=== PATIENT | male | born 1975 | race Asian ===

== ENCOUNTER 2021-01-10 17:35 | Inpatient (IN) | payer OTHER, SELFPAY ==
[2021-01-10] VITALS (25 sets, daily range): BP systolic 97–131; BP diastolic 57–89; PULSE 86–110; RESP 15–27; TEMP 36.5–37.8; O2SAT 95–99; BMI 29.3
--- NOTE | 2021-01-10 17:45 | DI.CT_ITS ---
Exam(s) CT ABDOMEN PELVIS W EXAM: CT ABDOMEN PELVIS W CLINICAL HISTORY: RLQ pain. TECHNIQUE: Imaging Protocol: Axial computed tomography images with coronal and sagittal reformatted images were created and reviewed CONTRAST MATERIAL: Intravenous: Omnipaque 100cc Oral: None COMPARISON: No exams were available for comparison FINDINGS: VISUALIZED LUNG BASES: No nodules nor pleural effusions evident. ABDOMEN: There is no ascites. LIVER: There is a small 8 millimeter cyst in the medial upper right hepatic lobe. There is also a joy bcapsular 6 millimeter hypodensity lower down in the lateral aspect right hepatic lobe, probably a he mangioma and there is another similar size and similar appearing subcapsular finding in the medial joy bcapsular aspect of the lower most right hepatic lobe. There is no dilatation of intrahepatic ducts. GALLBLADDER/BILIARY: Gallbladder surgically absent. CBD is not dilated. PANCREAS: There is a 4 millimeter cystic lesion in the pancreatic body. Also another similar size fi nding in the pancreatic tail. Pancreatic duct is not dilated. SPLEEN: Spleen is not enlarged. No obvious intrasplenic lesions. Splenic and portal veins are paten t. ADRENALS: There are no significant adrenal masses. KIDNEYS:No cysts evident. No solid renal masses. No calculi nor hydronephrosis.. ABDOMINAL AORTA: Abdominal aorta is not enlarged. LYMPH NODES:There is no retroperitineal nor paraaortic adenopathy. ABDOMINAL WALL: No evidence of significant anterior abdominal wall hernia. GI: The appendix is dilated and flamed measuring 14 millimeters and with some periappendiceal fluid i n addition to streaking. There is also hyperdense material in the lumen of the appendix measuring 2. 5 cm length. Appearance of the appendix is that perforation. High risk for developing abscess. Terminal ileum appears thickened but difficult to evaluate accurately without oral contrast therein. PELVIS: GI: As above.No evidence of sigmoid diverticulitis. LYMPH NODES: There is no intrapelvic nor inguinal adenopathy. REPRODUCTIVE: Prostate not enlarged. URINARY BLADDER: No calculi nor obvious masses evident OSSEOUS: No significant osseous lesions. Sacroiliac joints unremarkable. IMPRESSION: 1. Findings are consistent with acute appendicitis and suspicion for perforation. This patient is at high risk for developing abscess. 2. Multiple benign-appearing findings in the right hepatic lobe, probably a combination of small cyst s and hemangiomas. This can be further studied with MRI. 3. Thickening of the terminal ileum, somewhat difficult to evaluate accurately without oral contrast therein. Nevertheless cannot rule out enteritis and this requires appropriate follow-up. 4. 5 millimeters cystic structure in the pancreas which should also be further studied with MRI 5. The gallbladder surgically absent. The biliary tree is not dilated RADIATION DOSE DELIVERED: 1,026.99mGy.cm Total DLP DATA REPOSITORY: All CT scans at this facility are submitted to the National Radiology Data Registry (NRDR) Dose Index Registry (DIR) with the [employer] (ACR). RADIATION OPTIMIZATION: All CT scans at this facility use at least one of these dose optimization te chniques: automated exposure control; mA and/or kV adjustment per patient size (includes targeted exa ms where dose is matched to clinical indication); or iterative reconstruction.
[2021-01-10 17:59] LABS: Bilirubin Negative (Negative); Blood Negative (Negative); Clarity Clear (Clear); Glucose Negative (Negative); Ketones Negative (Negative); Leukocyte Esterase Negative (Negative); Nitrite Negative (Negative); Specific Gravity 1.015 (1.005-1.025); Urobilinogen 0.2 EU/dL (Up TO 0.2); pH 6.5 (5-8)
[2021-01-10] MEDS: ACETAMINOPHEN 1,000 MG/100 ML BTL 400 MG IVPB (18:14)
[2021-01-10] MEDS: Normal Saline 1,000 ML 1000 ML IV (18:14)
[2021-01-10 18:19] LABS: Abs Immature Grans 0.05 10^3/uL (0.0-0.06); Absolute Basophil Count 0.03 10^3/uL (0.0-0.2); Absolute Eosinophil Count 0.02 10^3/uL (0.0-0.7); Absolute Lymphocyte Count 0.21 10^3/uL (1.2-3.4); Absolute Monocyte Count 0.35 10^3/uL (0.1-0.8); Absolute Neutrophil Count 15.87 10^3/uL (1.2-6.7); Basophils % 0.2; Eosinophils % 0.1; HCT 41.6 % (40.0-50.0); HGB 14.3 g/dL (13.5-17.5); Immature Grans % 0.3; Lymphocytes % 1.3; MCH 29.6 pg (27.0-33.0); MCHC 34.4 % (32.0-36.0); MCV 86.1 fL (80-95); MPV 9.5 fL (8.0-11.0); Monocytes % 2.1; Nucleated RBC 0 %; Platelet Count 216 10^3/uL (130-400); RBC 4.83 10^6/uL (4.36-5.78); RDW 12.3 % (11.8-14.1); RDW-SD 38.7 fL; WBC 16.53 10^3/uL (4.4-10.8)
--- NOTE | 2021-01-10 18:22 | W.ED.GENAD ---
Discharge Plan Disposition Patient Disposition: [facility] INPATIENT Condition: Stable Discharge Details Chief Complaint: Abd Prob Clinical Impression: Acute appendicitis Admit Date/Time: 01/10/21 22:50 Admit Provider: Marylou Donohue Attending Provider: Marylou Donohue Primary Care Provider: Unknown,Unknown ED Provider: Laura Burrows Medical Decision Making Patient is a pleasant 45-year-old male, accompanied by his , with chief complaint of abdominal pain. He states that he began having umbilical comfort around midnight last night. Pain is since progressed and has increased in severity. Denies any nausea or vomiting. Has been encouraging hydration today. Had a T-max of 102?F earlier today. Currently febrile with a temp of 37.6?C. Past surgical history is pertinent for cholecystectomy. Patient has had diminished appetite. Small stool earlier this morning. No change in urinary habits. On exam, patient appears nontoxic. Will give fluids and IV acetaminophen for fever. He has no CVA tenderness. He is not having an umbilical discomfort at this time. However, he did have pain over McBurney's point in the right lower quadrant. Primarily concern for appendicitis. Will obtain lab and imaging. Discussed this plan with the patient and his and they are in agreement with this plan. Patient is not requesting any further analgesia Differential diagnosis at this time is most concerning for acute appendicitis. Will obtain CT imaging and baseline labs. Labs reviewed. Patient had white count of 16.5.n CMP significant for magnesium 1.5, will replenish this here. Labs otherwise unremarkable. I reviewed the CT and concern for acute appendicitis. Have requested consultation with Dr. Donohue. Dr. Donohue called back, will she will review imaging and contact us once again. Contacted by [facility] concerning for appendicitis. Also recommend there is a liver lesion as well as a pancreatic lesion that will need follow-up through outpatient MRI. FINDINGS: Lungs: Visualized lung bases are clear. Heart: Heart size normal. Mediastinal space: The visualized distal esophagus is normal. Liver: Normal contour. Well-circumscribed low-density hepatic lesions demonstrating benign CT features consistent with hepatic cysts. No further imaging evaluation is required. 16 x 11 x 11 mm indeterminate lesion in the posteromedial right hepatic lobe on series 5, images 219-241 measuring 71 Hounsfield units average density. Further evaluation with non-emergent liver MRI is recommended. No intrahepatic biliary ductal dilatation. Gallbladder and bile ducts: Evidence of prior cholecystectomy with no significant dilatation of the common bile duct. Pancreas: 5 mm nonenhancing low-density cystic lesion in the pancreatic body on axial 1 mm series 5, image 242. Communication to the main pancreatic duct is not established. No ductal dilatation is evident.Reimaging every 1 year for 5 years is recommended. (Reference: Carlos Eduardo, 2017) Spleen: Normal. No splenomegaly. Adrenal glands: Normal. No adrenal mass. Kidneys and ureters: No acute abnormalities. No hydronephrosis or hydroureter. No urinary tract stones are identified. Stomach and bowel: The stomach is unremarkable. The small bowel is nondilated. There is mild reactive wall thickening in the terminal ileum near the appendicitis, likely reactive. No acute colonic abnormalities. Appendix: The appendix is dilated and inflamed consistent with acute appendicitis, measuring up to 15 mm diameter with moderate surrounding inflammatory stranding and a small amount of periappendiceal fluid but no evidence of perforation or abscess development. There is a plug of hyperdense material in the base of the appendix measuring about 2 cm in length. Intraperitoneal space: Minimal peritoneal fluid in the right lower quadrant. No loculated components. No free air. Vasculature: No acute process. No abdominal aortic aneurysm. Lymph nodes: No adenopathy. Urinary bladder: Unremarkable as visualized. Reproductive: Mildly enlarged prostate. Bones/joints: No acute osseous abnormalities. Soft tissues: Unremarkable. IMPRESSION: 1. Acute appendicitis. No evidence of perforation or abscess. 2. There is an indeterminate lesion in the posteromedial right hepatic lobe. Nonemergent MRI of the liver recommended for further evaluation. 3. There is a 5 mm cystic lesion in the pancreatic body. Please see follow-up recommendations above. 4. Mild reactive wall thickening in the terminal ileum near the appendicitis. 5. Additional non-emergent findings detailed above. 6. These findings initiated a critical results reporting process. An addendum will be issued at the time of clinician notification. I discussed the concern for acute appendicitis as well as the incidental findings noted by the read with the patient. Patient does not have a local primary care, will ask our care management team to ensure close follow-up with primary care so he may have his outpatient MRI for further evaluation of the liver and pancreatic lesions. Dr. Donohue requests Chandu in preparation for appendectomy. She evaluted patient in jake department. Patient brought to the OR in stable condition. HPI General Mode of arrival: ambulatory. Date/Time Provider Initiated Documentation: 01/10/21 17:46. Limitations to Documentation: no limitations. Information obtained by: patient, family () and RN notes reviewed. History of Present Illness 45 year old M presents to the emergency department with the chief complaint of abdominal pain, described as severe, with intensity rated at 8. Quality is described as aching, and is localized to the abdomen. Patient reports no radiation. Patient started experiencing this hour(s) (began at 0000) and it has been constant. No relieving factors improve symptom(s), No exacerbating factors reported . Patient notes diaphoresis, fever/chills and loss of appetite; denies chest pain, cough, nausea/vomiting, rash, shortness of breath and weakness. Patient did receive the following treatments prior to arrival, none Related Data Home Medications Medication Instructions Recorded Confirmed Unknown [No Known Home Meds] 01/10/21 01/10/21 Allergies Allergy/AdvReac Type Severity Reaction Status Date / Time No Known Allergies Allergy Unverified 01/10/21 18:02 General Stated Complaint: Abd Prob ANTOLIN: 3 Review of Systems Constitutional Constitutional: Reports as per HPI, Denies chills, Denies fatigue, Denies fever(s) and Denies headache(s) ENT Ears, Nose, Mouth, and Throat: Denies headache(s) Cardiovascular Cardiovascular: Reports as per HPI, Denies chest pain and Denies dyspnea Respiratory Respiratory: Reports as per HPI, Denies cough and Denies dyspnea Gastrointestinal Gastrointestinal: Reports as per HPI Genitourinary Genitourinary: Denies system reviewed and no additional complaints, except as documented (patient denies any change in urinary habits) Musculoskeletal Musculoskeletal: Reports as per HPI and Denies back pain Integumentary/Breasts Skin/Breast: Reports as per HPI and Denies rash Neurologic Neurologic: Reports as per HPI and Denies headache(s) Endocrine Endocrine: Denies fatigue COUNTS INCLUDE 234 BEDS AT THE [facility] Surgical History History of cholecystectomy Social History Smoking/Tobacco Use Status: Never Smoking risk assessment performed?: Yes Alcohol Intake: never Drug use: Never Substance use type: does not use Do you feel safe at home: Yes Do you feel safe in your relationship?: Yes Exam Const General: cooperative, uncomfortable, no acute distress, well developed and ill appearing acutely Nutritional Appearance: average body habitus and well nourished Orientation: alert and awake [facility] Head: normal to inspection Mouth: moist mucous membranes Resp Effort & Inspection: normal respiratory effort, able to speak in complete sentences and no respiratory distress Auscultation: clear to auscultation bilaterally, no rales, no rhonchi and no wheezes Cardio Rate: tachycardic Rhythm: regular rhythm Heart Sounds: S1 normal and S2 normal GI Inspection: normal to inspection Palpation: soft, no hepatosplenomegaly, not firm, no guarding, no hernias, no masses, no pulsatile masses, not rigid, tender in the RLQ and at McBurney's point; obturator sign negative, psoas sign negative and with no rebound tenderness and No ascites Percussion: normal to percussion Auscultation: normal bowel sounds Back/Spine/Pelvis Back: no CVA tenderness Skin General skin exam: no rashes or lesions noted Trauma: no lacerations or abrasions Neuro General: patient alert and patient awake Cognition: normal cognition Speech: speech normal Gait: normal gait Psych Appearance: grossly normal and well kempt Mental Status: mental status grossly normal Speech and Movement: speech and movement normal Course Vital Signs Vital signs: Vital Signs Temperature 37.6 C H 01/10/21 17:39 Pulse 110 H 01/10/21 17:39 Respiratory Rate 18 01/10/21 17:39 Blood Pressure 107/57 L 01/10/21 17:39 Pulse Oximetry 99 01/10/21 17:39 Temperature 37.6 C H 01/10/21 17:39 Temperature Source Temporal Artery Scan 01/10/21 17:39 Pulse 110 H 01/10/21 17:39 Respiratory Rate 18 01/10/21 17:39 Blood Pressure 107/57 L 01/10/21 17:39 Pulse Oximetry 99 01/10/21 17:39 Oxygen Delivery Method Room Air 01/10/21 17:39 Oxygen Flow Rate 0 01/10/21 17:39 Pain Level 8 01/10/21 17:39 Lab/Test Results Lab/Test Results: Laboratory Tests Range/Units 01/10/21 01/10/21 17:55 18:09 WBC (4.4-10.8) 10^3/uL 16.53 H RBC (4.36-5.78) 10^6/uL 4.83 Hgb (13.5-17.5) g/dL 14.3 Hct (40.0-50.0) % 41.6 MCV (80-95) fL 86.1 MCH (27.0-33.0) pg 29.6 MCHC (32.0-36.0) % 34.4 RDW (11.8-14.1) % 12.3 Plt Count (130-400) 10^3/uL 216 MPV (8.0-11.0) fL 9.5 Immature Gran % 0.3 Neutrophils % 96.0 Lymphocytes % 1.3 Monocytes % 2.1 Eosinophils % 0.1 Basophils % 0.2 Nucleated RBC % % 0 Absolute Neutrophils (1.2-6.7) 10^3/uL 15.87 H Absolute Lymphocytes (1.2-3.4) 10^3/uL 0.21 L Absolute Monocytes (0.1-0.8) 10^3/uL 0.35 Absolute Eosinophils (0.0-0.7) 10^3/uL 0.02 Absolute Basophils (0.0-0.2) 10^3/uL 0.03 Urine Color (Yellow) Yellow Urine Clarity (Clear) Clear Urine pH (5-8) 6.5 Ur Specific [place] (1.005-1.025) 1.015 Urine Protein (Negative) mg/dL Negative Urine Ketones (Negative) mg/dL Negative Urine Blood (Negative) Negative Urine Nitrite (Negative) Negative Urine Bilirubin (Negative) Negative Urine Urobilinogen (Up TO 0.2) EU/dL 0.2 Ur Leukocyte Esterase (Negative) Negative Urine Glucose (Negative) mg/dL Negative
[2021-01-10 18:29] LABS: ALT 18 U/L (16-63); AST 13 U/L (15-37); Albumin 3.5 g/dL (3.4-5.0); Alkaline Phosphatase 68 U/L (46-116); Anion Gap 9.8 mmol/L (3-11); BUN 11 mg/dL (7-18); Bilirubin, Total 0.6 mg/dL (0.2-1.0); CO2 26.2 mmol/L (21.0-32.0); Calcium 8.9 mg/dL (8.5-10.1); Chloride 103 mmol/L (98-107); Glucose 103 mg/dL (74-106); Lipase 69 U/L (73-393); Magnesium 1.5 mg/dL (1.8-2.4); Potassium 3.5 mmol/L (3.5-5.1); Sodium 139 mmol/L (136-145)
[2021-01-10] MEDS: Omnipaque 350 MG/ML 100 ML BTL IV (18:48)
[2021-01-10] MEDS: Normal Saline - Diluent 50 ML VIAL IV (18:50)
--- NOTE | 2021-01-10 19:15 | DI.VRAD_ITS ---
PROCEDURE INFORMATION: Exam: CT Abdomen And Pelvis With Contrast Exam date and time: 01/10/2021 5:47 PM Age: 45 years old Clinical indication: Other: Rlq pain; Prior surgery; Surgery date: 6+ months; Surgery type: Gallbladder removed TECHNIQUE: Imaging protocol: Computed tomography of the abdomen and pelvis with contrast. Total images: 1382 Radiation optimization: All CT scans at this facility use at least one of these dose optimization techniques: automated exposure control; mA and/or kV adjustment per patient size (includes targeted exams where dose is matched to clinical indication); or iterative reconstruction. Contrast material: OMNIPAQUE 350; Contrast volume: 100 ml; Contrast route: INTRAVENOUS (IV); COMPARISON: No relevant prior studies available. FINDINGS: Lungs: Visualized lung bases are clear. Heart: Heart size normal. Mediastinal space: The visualized distal esophagus is normal. Liver: Normal contour. Well-circumscribed low-density hepatic lesions demonstrating benign CT features consistent with hepatic cysts. No further imaging evaluation is required. 16 x 11 x 11 mm indeterminate lesion in the posteromedial right hepatic lobe on series 5, images 219-241 measuring 71 Hounsfield units average density. Further evaluation with non-emergent liver MRI is recommended. No intrahepatic biliary ductal dilatation. Gallbladder and bile ducts: Evidence of prior cholecystectomy with no significant dilatation of the common bile duct. Pancreas: 5 mm nonenhancing low-density cystic lesion in the pancreatic body on axial 1 mm series 5, image 242. Communication to the main pancreatic duct is not established. No ductal dilatation is evident.Reimaging every 1 year for 5 years is recommended. (Reference: Carlos Eduardo, 2017) Spleen: Normal. No splenomegaly. Adrenal glands: Normal. No adrenal mass. Kidneys and ureters: No acute abnormalities. No hydronephrosis or hydroureter. No urinary tract stones are identified. Stomach and bowel: The stomach is unremarkable. The small bowel is nondilated. There is mild reactive wall thickening in the terminal ileum near the appendicitis, likely reactive. No acute colonic abnormalities. Appendix: The appendix is dilated and inflamed consistent with acute appendicitis, measuring up to 15 mm diameter with moderate surrounding inflammatory stranding and a small amount of periappendiceal fluid but no evidence of perforation or abscess development. There is a plug of hyperdense material in the base of the appendix measuring about 2 cm in length. Intraperitoneal space: Minimal peritoneal fluid in the right lower quadrant. No loculated components. No free air. Vasculature: No acute process. No abdominal aortic aneurysm. Lymph nodes: No adenopathy. Urinary bladder: Unremarkable as visualized. Reproductive: Mildly enlarged prostate. Bones/joints: No acute osseous abnormalities. Soft tissues: Unremarkable. IMPRESSION: 1. Acute appendicitis. No evidence of perforation or abscess. 2. There is an indeterminate lesion in the posteromedial right hepatic lobe. Nonemergent MRI of the liver recommended for further evaluation. 3. There is a 5 mm cystic lesion in the pancreatic body. Please see follow-up recommendations above. 4. Mild reactive wall thickening in the terminal ileum near the appendicitis. 5. Additional non-emergent findings detailed above. 6. These findings initiated a critical results reporting process. An addendum will be issued at the time of clinician notification. REFERENCES: Carlos Eduardo SANTOYO, et al. Management of Incidental Pancreatic Cysts: A White Paper of the ACR Incidental Findings Committee. J Am Shaji Radiol. 2017;14(7):911-923. Dictated and Authenticated by: Corey Calvillo MD. Ordering:ZORAIDA Sanchez MD
--- NOTE | 2021-01-10 19:18 | DI.VRAD_ITS ---
Addendum created by Corey Calvillo MD on 01/10/2021 7:18:11 PM EDT: Addendum: THIS REPORT CONTAINS FINDINGS THAT MAY BE CRITICAL TO PATIENT CARE. The findings were verbally communicated via telephone conference with MADDI WATERMAN at 7:17 PM EDT on 01/10/2021. The findings were acknowledged and understood. Initial report created on 01/10/2021 7:15:22 PM EDT: PROCEDURE INFORMATION: Exam: CT Abdomen And Pelvis With Contrast Exam date and time: 01/10/2021 5:47 PM Age: 45 years old Clinical indication: Other: Rlq pain; Prior surgery; Surgery date: 6+ months; Surgery type: Gallbladder removed TECHNIQUE: Imaging protocol: Computed tomography of the abdomen and pelvis with contrast. Total images: 1382 Radiation optimization: All CT scans at this facility use at least one of these dose optimization techniques: automated exposure control; mA and/or kV adjustment per patient size (includes targeted exams where dose is matched to clinical indication); or iterative reconstruction. Contrast material: OMNIPAQUE 350; Contrast volume: 100 ml; Contrast route: INTRAVENOUS (IV); COMPARISON: No relevant prior studies available. FINDINGS: Lungs: Visualized lung bases are clear. Heart: Heart size normal. Mediastinal space: The visualized distal esophagus is normal. Liver: Normal contour. Well-circumscribed low-density hepatic lesions demonstrating benign CT features consistent with hepatic cysts. No further imaging evaluation is required. 16 x 11 x 11 mm indeterminate lesion in the posteromedial right hepatic lobe on series 5, images 219-241 measuring 71 Hounsfield units average density. Further evaluation with non-emergent liver MRI is recommended. No intrahepatic biliary ductal dilatation. Gallbladder and bile ducts: Evidence of prior cholecystectomy with no significant dilatation of the common bile duct. Pancreas: 5 mm nonenhancing low-density cystic lesion in the pancreatic body on axial 1 mm series 5, image 242. Communication to the main pancreatic duct is not established. No ductal dilatation is evident.Reimaging every 1 year for 5 years is recommended. (Reference: Carlos Eduardo, 2017) Spleen: Normal. No splenomegaly. Adrenal glands: Normal. No adrenal mass. Kidneys and ureters: No acute abnormalities. No hydronephrosis or hydroureter. No urinary tract stones are identified. Stomach and bowel: The stomach is unremarkable. The small bowel is nondilated. There is mild reactive wall thickening in the terminal ileum near the appendicitis, likely reactive. No acute colonic abnormalities. Appendix: The appendix is dilated and inflamed consistent with acute appendicitis, measuring up to 15 mm diameter with moderate surrounding inflammatory stranding and a small amount of periappendiceal fluid but no evidence of perforation or abscess development. There is a plug of hyperdense material in the base of the appendix measuring about 2 cm in length. Intraperitoneal space: Minimal peritoneal fluid in the right lower quadrant. No loculated components. No free air. Vasculature: No acute process. No abdominal aortic aneurysm. Lymph nodes: No adenopathy. Urinary bladder: Unremarkable as visualized. Reproductive: Mildly enlarged prostate. Bones/joints: No acute osseous abnormalities. Soft tissues: Unremarkable. IMPRESSION: 1. Acute appendicitis. No evidence of perforation or abscess. 2. There is an indeterminate lesion in the posteromedial right hepatic lobe. Nonemergent MRI of the liver recommended for further evaluation. 3. There is a 5 mm cystic lesion in the pancreatic body. Please see follow-up recommendations above. 4. Mild reactive wall thickening in the terminal ileum near the appendicitis. 5. Additional non-emergent findings detailed above. 6. These findings initiated a critical results reporting process. An addendum will be issued at the time of clinician notification. REFERENCES: Carlos Eduardo SANTOYO, et al. Management of Incidental Pancreatic Cysts: A White Paper of the ACR Incidental Findings Committee. J Am Shaji Radiol. 2017;14(7):911-923. Dictated and Authenticated by: Corey Calvillo MD. Ordering:ZORAIDA Sanchez MD
--- NOTE | 2021-01-10 19:42 | NUR.NOTE ---
Nursing Note:needs pcp for lesions on liver and pancreas referal sent to 01/16/21
--- NOTE | 2021-01-10 20:06 | ANES.PREOP_ITS ---
General Info Date of Service Date Performed: 01/10/21 Height: 5 ft 8 in Weight: 87.5 kg Body Mass Index (BMI): 29.3 Meds Allergies and Home Medications Allergies Allergy/AdvReac Type Severity Reaction Status Date / Time No Known Allergies Allergy Unverified 01/10/21 18:02 Home Medication Medication Instructions Recorded Unknown [No Known Home Meds] 01/10/21 Current Visit Medications: Current Medications Generic Name Dose Route Start Last Admin Trade Name Freq PRN Reason Stop Dose Admin IV Miscellaneous Supplies 1 each 01/10/21 18:00 Iv Access IV DIRECTED ABBIE Iohexol 100 ml 01/10/21 19:00 01/10/21 18:48 Omnipaque 350 Mg/Ml 100 Ml Btl IV 02/09/21 23:59 100 ml DIRECTED ABBIE Administration Sodium Chloride 0 ml 01/10/21 17:46 Normal Saline Flush 10 Ml Syr IVP PRN PRN Sodium Chloride 50 ml 01/10/21 19:00 01/10/21 18:50 Normal Saline - Diluent 50 Ml Vial IV 50 ml .FOR DI USE ABBIE Administration [facility] Surgical History Surgical History History of cholecystectomy Tobacco Smoking/Tobacco Use Status: Never Alcohol Alcohol Intake: never Substance Use Substance use: Never Substance use type: does not use Vital Signs and Lab Results Vital Signs Most Recent Vital Signs in EMR: Most Recent Vital Signs Temp Pulse Resp BP Pulse Ox 37.8 C H 93 H 19 104/65 97 01/10/21 19:40 01/10/21 19:31 01/10/21 19:31 01/10/21 19:31 01/10/21 19:31 Lab Results Result Diagrams: 01/10/21 18:09 01/10/21 18:09 Blood Type / Crossmatch: No Data to Display Complete Blood Count: White Blood Count 16.53 10^3/uL (4.4-10.8) H 01/10/21 18:09 01/10/21 Red Blood Count 4.83 10^6/uL (4.36-5.78) 01/10/21 18:09 01/10/21 Hemoglobin 14.3 g/dL (13.5-17.5) 01/10/21 18:09 01/10/21 Hematocrit 41.6 % (40.0-50.0) 01/10/21 18:09 01/10/21 Platelet Count 216 10^3/uL (130-400) 01/10/21 18:09 01/10/21 Complete Metabolic Panel: Sodium Level 139 mmol/L (136-145) 01/10/21 18:09 01/10/21 Potassium Level 3.5 mmol/L (3.5-5.1) 01/10/21 18:09 01/10/21 Chloride Level 103 mmol/L (98-107) 01/10/21 18:09 01/10/21 Carbon Dioxide Level 26.2 mmol/L (21.0-32.0) 01/10/21 18:09 01/10/21 Blood Urea Nitrogen 11 mg/dL (7-18) 01/10/21 18:09 01/10/21 Creatinine 1.0 mg/dL (0.70-1.30) 01/10/21 18:09 01/10/21 Estimated GFR/1.73 m2 >= 60.00 (mL/min/1.73m2) 01/10/21 18:09 01/10/21 Magnesium Level 1.5 mg/dL (1.8-2.4) L 01/10/21 18:09 01/10/21 Calcium Level 8.9 mg/dL (8.5-10.1) 01/10/21 18:09 01/10/21 Albumin 3.5 g/dL (3.4-5.0) 01/10/21 18:09 01/10/21 Glucose Level 103 mg/dL (74-106) 01/10/21 18:09 01/10/21 Liver Function Panel: Alanine Aminotransferase (ALT/SGPT) 18 U/L (16-63) 01/10/21 18:09 01/10/21 Aspartate Amino Transf (AST/SGOT) 13 U/L (15-37) L 01/10/21 18:09 01/10/21 Coagulation Panel: No Data to Display Cardiac Panel: No Data to Display Arterial Blood Gas: No Data to Display Venous Blood Gas: No Data to Display Pancreas Panel: Lipase 69 U/L (73-393) 01/10/21 18:09 01/10/21 Thyroid Panel: No Data to Display Infectious Disease: Coronavirus (COVID-19)(PCR) Pending 01/10/21 20:06 01/10/21 Coronavirus 2019 Source Nasal/Nares 01/10/21 20:06 01/10/21 Blood Cultures: No Data to Display Toxicology Panel: No Data to Display Anesthesia Assessment and Plan Anesthesia History Personal History: No History of Anesthesia Complications Family History: No Family History of Anesthesia Complications Exercise Tolerance Exercise Tolerance: Metabolic Equivalents>4 Cardiac & Pulmonary Exam Cardiac Exam: Normal S1/S2 Heart Sounds Pulmonary Exam: Clear Bilateral Breath Sounds Airway Exam Known Difficult Airway: No Mallampati Class: 3 Mouth Opening: Narrow (< 3cm) Thyromental Distance: Less than 3 cm Neck Range of Motion: Full ROM Neck Circumference: Normal Teeth Condition: Loose or Chipped (chipped front after intubation for delbert. ) ASA Classification ASA Score: ASA 2 Emergency Case?: Yes NPO Status NPO Status: NPO Clears >2 hours, Solids >8 hours Anesthesia Plan Resuscitation Status: Full Code Anesthesia Technique: General Anesthesia Airway Planned: Endotracheal Tube Monitors Used: Standard Monitors Preoperative Comments:: 45 yo otherwise healthy male who presented to the ED with abdominal pain since last night that has increased. CT scan shows appendicitis. Has received acetaminophen 1000 mg and 1000 mL NS so far in the ED.
[2021-01-10 20:09] LABS: Source Nasal/Nares
[2021-01-10] MEDS: PIPERACILLIN/TAZO 3.375 GM in Normal Saline 50 ML IVPB (20:40)
--- NOTE | 2021-01-10 20:50 | HPE_ITS ---
Date of service: 01/10/21 Time of Service: 20:51 Assessment and Plan Assessment and plan (1) Acute appendicitis: Status: Acute Assessment and plan: Informed consent is obtained for the procedural (explained in simple layman's terms that the pt and/or family could understand) explaining risks vs benefits and alternatives to the procedure and consequences if we do not do the procedure. Risks include but are not limited to:bleeding,infections, pneumonia, blood clots/DVT/PE, anesthesia(aspiration, damage to teeth/airway/[place]/CVA//prolonged mechanical ventilation/PTX/IV infections), damage to bowel, bladder,blood vessels, ureters, bile ducts. Leakage from anastomosis requiring colostomy/ Wound infections require further surgery. Abscesses or hernias scarring and disfigurement. Subsequent bowel obstructions from scar tissue. Possible open procedure if minimal invasive procedure is being attempted. -Patient received fluids, Tylenol, and Zosyn in the ED. -His Covid tested still pending. He was vaccinated in May 2020. Past surgical history is significant for a lap delbert, a low ACL repair that was done through the scope, and multiple dental surgeries. He had no problems with anesthesia. -We will plan on keeping him overnight. My concern is that this might be a ruptured abscess with a localized mass. He may require a drain or prolonged inpatient stay with IV antibiotics. There is also possibility of open procedure. -He also has a cyst in his liver and a cyst in his pancreas. These appear to be benign and less than 5 mm. Plan repeat MRI as outpatient in 3 months time as a precautionary follow-up. -Further recommendations to follow up on findings at surgery. History of Present Illness Narrative: Patient went to the [employer] on Saturday and a a high-fiber meal. At about 8 o'clock last night he started having generalized abdominal pain and just felt really crampy. He woke up at about midnight having right lower quadrant pain and nausea and generally not feeling well. He went to a. He left early and came home because he was having shaking chills and a fever of 103. He has localized right lower quad pain. No diarrhea or dysuria. He has never had anything like this before. He denies any recent travel outside of the state. He has not been camping. No one else at home is ill. No trauma. No prior history of any GI problems. His Covid vaccine is Review of Systems All systems reviewed & are unremarkable except as noted in HPI and below PFSH Surgical History History of cholecystectomy Social History Smoking/Tobacco Use Status: Never Smoking risk assessment performed?: Yes Alcohol Intake: never Drug use: Never Substance use type: does not use Do you feel safe at home: Yes Do you feel safe in your relationship?: Yes Meds Allergies and Home Medications Allergies Allergy/AdvReac Type Severity Reaction Status Date / Time No Known Allergies Allergy Unverified 01/10/21 18:02 Home Medications Medication Instructions Recorded Confirmed Type Unknown [No Known Home Meds] 01/10/21 01/10/21 History Exam Const General: cooperative, healthy appearing, comfortable, no acute distress, well developed and well groomed Nutritional Appearance: average body habitus and well nourished Orientation: alert, awake and oriented x3 [facility] Head: normal to inspection, normocephalic and atraumatic Ears: hearing grossly normal bilaterally and external ears normal General nose exam: external nose normal Face and sinus: normal facial exam and sinuses nontender Mouth: oral mucosae normal, lip normal, tongue normal and moist mucous membranes Teeth and gingiva: dentition normal Eyes General: appearance normal, both eyes and all related structures Conjunctivae: conjunctivae normal Sclera: sclerae normal Pupils: PERRL Neck Neck: normal visual inspection and full ROM Chest Chest: normal inspection of the chest Resp Effort & Inspection: normal respiratory effort, able to speak in complete sentences, no cough, no nasal flaring, not tachypneic and no use of accessory muscles Auscultation: clear to auscultation bilaterally, no rales, no rhonchi and no wheezes Cardio Jugular venous pressure: no JVD Rate: regular rate Rhythm: regular rhythm GI Inspection: normal to inspection, no edema and distended Palpation: soft, no masses, tender and No ascites Auscultation: hypoactive bowel sounds Other: Postsurgical changes noted. No hernias. Localized guarding and rebound in the right lower quadrant. No Rovsing's Skin General skin exam: no rashes or lesions noted Trauma: no lacerations or abrasions Neuro General: patient alert, patient oriented x3, oriented, gait normal, moves all extremities, no focal motor deficits and CN's II-XI intact bilaterally Cognition: normal cognition Speech: speech normal Gait: normal gait Motor: muscle tone normal throughout Extrem General: normal to inspection, full ROM and no clubbing, cyanosis or edema Psych Appearance: grossly normal and well kempt Mental Status: mental status grossly normal Speech and Movement: speech and movement normal Affect: normal affect Results Labs Result diagrams: 01/10/21 18:09 01/10/21 18:09 Labs: Laboratory Results - last 24 hr 01/10/21 01/10/21 01/10/21 17:55 18:09 18:09 WBC 16.53 H RBC 4.83 Hgb 14.3 Hct 41.6 MCV 86.1 MCH 29.6 MCHC 34.4 RDW 12.3 Plt Count 216 MPV 9.5 Immature Gran % 0.3 Neutrophils % 96.0 Lymphocytes % 1.3 Monocytes % 2.1 Eosinophils % 0.1 Basophils % 0.2 Nucleated RBC % 0 Absolute Neutrophils 15.87 H Absolute Lymphocytes 0.21 L Absolute Monocytes 0.35 Absolute Eosinophils 0.02 Absolute Basophils 0.03 Sodium 139 Potassium 3.5 Chloride 103 Carbon Dioxide 26.2 Anion Gap 9.8 BUN 11 Creatinine 1.0 Estimated GFR/1.73 m2 >= 60.00 Glucose 103 Calcium 8.9 Magnesium 1.5 L Total Bilirubin 0.6 AST 13 L ALT 18 Alkaline Phosphatase 68 Total Protein 7.0 Albumin 3.5 Lipase 69 Urine Color Yellow Urine Clarity Clear Urine pH 6.5 Ur Specific [place] 1.015 Urine Protein Negative Urine Ketones Negative Urine Blood Negative Urine Nitrite Negative Urine Bilirubin Negative Urine Urobilinogen 0.2 Ur Leukocyte Esterase Negative Urine Glucose Negative COVID-19 Source 01/10/21 20:06 WBC RBC Hgb Hct MCV MCH MCHC RDW Plt Count MPV Immature Gran % Neutrophils % Lymphocytes % Monocytes % Eosinophils % Basophils % Nucleated RBC % Absolute Neutrophils Absolute Lymphocytes Absolute Monocytes Absolute Eosinophils Absolute Basophils Sodium Potassium Chloride Carbon Dioxide Anion Gap BUN Creatinine Estimated GFR/1.73 m2 Glucose Calcium Magnesium Total Bilirubin AST ALT Alkaline Phosphatase Total Protein Albumin Lipase Urine Color Urine Clarity Urine pH Ur Specific [place] Urine Protein Urine Ketones Urine Blood Urine Nitrite Urine Bilirubin Urine Urobilinogen Ur Leukocyte Esterase Urine Glucose COVID-19 Source Nasal/Nares Last Vital Signs Temp 37.8 C H 01/10/21 19:40 Pulse 93 H 01/10/21 20:46 Resp 15 01/10/21 20:46 BP 98/59 L 01/10/21 20:46 Pulse Ox 96 01/10/21 20:46
[2021-01-10 21:03] LABS: COVID-19 PCR Negative (Negative)
[2021-01-10] MEDS: Lactated Ringers 1,000 ML 30 ML IV (21:13)
--- NOTE | 2021-01-10 22:17 | APP_PTH ---
PATIENT: Maurice Marshall LOC: U#:[id number] AGE/SX: 45/M ROOM: 230 RE01/10/[address]: Marylou Donohue : 1975 BED: A DIS: 01/12/2021 SPEC #: [id number] RECD: 01/11/21 12:36 STATUS: KIARRA REQ #: [id number] MICHAEL: 01/10/21 22:[address]: Marylou Donohue DEPT: Surgical Specimen RECD BY: Kelsey Askew ENTERED: 01/11/21 12:36 SP TYPE: Appendix OTHR DR: Unknown,Unknown Tissues: 1 - APPENDIX NOT INCIDENTAL Procedures: GROSS AND MICRO LEVEL 3 Comments: [id number]
[2021-01-10] MEDS: Bupivacaine 0.25% Pres-Free 30 ML VIAL (22:37)
--- NOTE | 2021-01-10 22:54 | ROE_ITS ---
Date of service: 01/10/21 Time of Service: 22:55 Operative Note Operative Note DATE OF PROCEDURE: 01/10/21 PRE-OP DIAGNOSIS: acute appy POST-OP DIAGNOSIS: other (gangrenous appy ) PROCEDURE: lap appy SURGEON: Colby Jarvis SECURITY ATTENDANT: Josep Vargas ANESTHESIA TYPE: Local By Surgeon and General LMA/ETT Refer to Anesthesia Record ESTIMATED BLOOD LOSS: 10 PATHOLOGY: other COMPLICATIONS: None Patient was transported to: PACU Patient's condition: stable Procedure Description: COMPLICATIONS: The patient tolerated the procedure well without complications. INDICATIONS: The patient has signs and symptoms compatible with acute appendicitis and is brought to the OR for laparoscopic appendectomy, possible open procedure. Informed consent is obtained for the procedural (explained in simple layman's terms that the pt and/or family could understand) explaining risks vs benefits and alternatives to the procedure and consequences if we do not do the procedure. Risks include but are not limited to:bleeding,infections, pneumonia, blood clots/DVT/PE, anesthesia(aspiration, damage to teeth/airway/[place]/CVA//prolonged mechanical ventilation/PTX/IV infections), damage to bowel, bladder,blood vessels, ureters. Damage to solid organs requiring removal. Infertility. Leakage from anastomosis requiring colostomy. Wound infections requirng further surgery. Scarring and disfigurement. Subsequent bowel obstructions from scar tissue. Possible open procedure if minimal invasive procedure is being attempted. Abscess and stump appendicitis as well as others. DESCRIPTION OF PROCEDURE: The patient was brought to the operating room suite and placed in supine position. Anesthesia was administered per the Department of Anesthesia. A Lazaro catheter and OG tube are placed. The patient was prepped and draped in the usual sterile fashion using ChloraPrep scrub solution. Pause for the cause was done. 30 mL of 1% buffered was used for local anesthetization. A stab incision was made in the umbilicus and the Veress was inserted. Drop test was positive and insufflation was begun. When 15 mm of pressure was noted on the monitor, yhr veris needle was removed, a #5 port inserted. Camera inserted through the port shows no damage to underlying structures. Bowel, liver and stomach that are visualized are normal in appearance. Pelvic organs are not visualized. The appendix is inflamed, erythematous,enlarged, & distended, but does not appear to have been ruptured. There is no purulent drainage in the pelvis. The cecum is adhered to the lateral sidewall. This is taken down with a combination of blunt and sharp dissection. During the course of this dissection, a rent is made in the serosa of the ileum approximately 4 from the cecum. It is not full thickness and there is no leakage of enteric contents. This is closed w/ x2 stitches of 2-0 PDS, Stratices-fix. The appendix is adhered under the cecum posteriorly. This is dissected out. The tip is quit enlarged and is gangrenous. It has not ruptured. There is no abscess or serous fluid. A 12 mm port was then placed in the suprapubic position under direct visualization following creation of a local field block as well as a second 5 mm port in the LLQ. The appendix is elevated and a rent dissected into the mesentery. The base of the appendix is healthy and will hold meagan. A Endo-CYNTHIA stapler is placed across the base of the appendix and fired and 2nd stapler placed across the mesentery and fired. The appendix is placed in a bag and brought out. There is no bleeding or enteric leakage from the staple lines. There is no bleeding or enteric drainage from th e suture line on the ileum. the base of the appendix on the cecum is re-enforced w/ clips. the pt does not require a drain. The abdomen was copiously irrigated with a liter of saline. All saline is evacuated. The scope and ports are removed. Pneumoperitoneum is evacuated. The fascia under the 12 mm port is closed with 0 Vicryl. There was no bleeding from the port sites as when they removed and the pneumoperitoneum evacuated. The wounds were copiously irrigated and closed in 2 layers with 4-0 Monocryl. Skin glue is used. . The patient tolerated the procedure without complication, transferred to the recovery room in stable condition. COLBY JARVIS, DO
--- NOTE | 2021-01-10 23:25 | W.PM.PROGNOT ---
Date of Service Date of service: 01/10/21 Time of Service: 23:25 Assessment and Plan Assessment and plan (1) Liver cyst: Status: Acute (2) Congenital pancreatic cyst: Status: Acute (3) Acute appendicitis: Status: Acute Assessment and plan: The patient is doing well post-op. Their pain is well controlled. They are having no nausea or vomiting. The pt is not having any chest pain or SOB, productive cough; no calf pain or swelling. The pt is making good urine. The pt pain is adequately controlled. The case was discussed with nursing and patient?s progress reviewed. All of the pt's home medications were addressed and adjusted accordingly for their oral intact status. HEENT: no jaundice. no eye pain/drainage/redness/swelling. Mild sore throat Cardio- NSR no chest pain, BP stable. Pulm: no sob or productive cough. no hemoptysis Incision- clean/dry. Dressing intact no excessive bleeding or drainage I discussed with the patient and/or there family about the findings in surgery and the pt's progress. We reviewed expectations for progress in the hospital; what the pt could expect for recovery time and length of stay. We discussed the importance of walking and pulmonary toilet to avoid blood clots and pneumonia. Continue current plans for pulmonary toilet, GI and DVT prophylaxis. We shall continue the current plan for pain management as it is at an appropriate level, and working well for the pt. Appropriate measures will be taken for constipation prevention, and this was also reviewed with the pt. The wound care plan was reviewed with nursing as well. see orders water/ice. clears in am zosyn D#1 CBC in am. Plan d/c when normalizing DVT/GI prophalaxis pulm toilet pain managemnt: Ofirm/toradol/ice/ulrtam supportive care MRI of pancrease/liver in 3months time to f/u on cysts as outpt Objective Last Vital Signs Temp 36.5 C 01/10/21 23:21 Pulse 90 01/10/21 23:21 Resp 16 01/10/21 23:21 BP 122/89 01/10/21 23:21 Pulse Ox 99 01/10/21 23:21 Laboratory Results - last 24 hr 01/10/21 01/10/21 01/10/21 17:55 18:09 18:09 WBC 16.53 H RBC 4.83 Hgb 14.3 Hct 41.6 MCV 86.1 MCH 29.6 MCHC 34.4 RDW 12.3 Plt Count 216 MPV 9.5 Immature Gran % 0.3 Neutrophils % 96.0 Lymphocytes % 1.3 Monocytes % 2.1 Eosinophils % 0.1 Basophils % 0.2 Nucleated RBC % 0 Absolute Neutrophils 15.87 H Absolute Lymphocytes 0.21 L Absolute Monocytes 0.35 Absolute Eosinophils 0.02 Absolute Basophils 0.03 Sodium 139 Potassium 3.5 Chloride 103 Carbon Dioxide 26.2 Anion Gap 9.8 BUN 11 Creatinine 1.0 Estimated GFR/1.73 m2 >= 60.00 Glucose 103 Calcium 8.9 Magnesium 1.5 L Total Bilirubin 0.6 AST 13 L ALT 18 Alkaline Phosphatase 68 Total Protein 7.0 Albumin 3.5 Lipase 69 Urine Color Yellow Urine Clarity Clear Urine pH 6.5 Ur Specific [place] 1.015 Urine Protein Negative Urine Ketones Negative Urine Blood Negative Urine Nitrite Negative Urine Bilirubin Negative Urine Urobilinogen 0.2 Ur Leukocyte Esterase Negative Urine Glucose Negative COVID-19 Source SARS-CoV-2 (PCR) 01/10/21 20:06 WBC RBC Hgb Hct MCV MCH MCHC RDW Plt Count MPV Immature Gran % Neutrophils % Lymphocytes % Monocytes % Eosinophils % Basophils % Nucleated RBC % Absolute Neutrophils Absolute Lymphocytes Absolute Monocytes Absolute Eosinophils Absolute Basophils Sodium Potassium Chloride Carbon Dioxide Anion Gap BUN Creatinine Estimated GFR/1.73 m2 Glucose Calcium Magnesium Total Bilirubin AST ALT Alkaline Phosphatase Total Protein Albumin Lipase Urine Color Urine Clarity Urine pH Ur Specific [place] Urine Protein Urine Ketones Urine Blood Urine Nitrite Urine Bilirubin Urine Urobilinogen Ur Leukocyte Esterase Urine Glucose COVID-19 Source Nasal/Nares SARS-CoV-2 (PCR) Negative
--- NOTE | 2021-01-10 23:37 | W.ANESPOSTOP ---
Postoperative Evaluation Date, Time and Location Date Performed: 01/10/21 Time Performed: 23:37 Patient Location: PACU Vital Signs Most Recent Imported Vital Signs: Most Recent Vital Signs Temp Pulse Resp BP Pulse Ox 36.5 C 88 20 124/79 97 01/10/21 23:25 01/10/21 23:25 01/10/21 23:25 01/10/21 23:25 01/10/21 23:25 Pain Score Most Recent Pain Score: Most Recent Pain Score Pain Level 0 01/10/21 23:25 Assessment Mental Status: Awake (Alert & Oriented to Patient Baseline) Airway and Respiratory Function: Patent airway with normal (patient baseline) respiratory exam Cardiovascular Function: Hemodynamically Stable Hydration Status: Adequately Hydrated Nausea & Vomiting: No Nausea or Vomiting Pain: Pt. Denies Any Pain Peripheral Nerve Block: Patient did not receive a nerve block
[2021-01-11] VITALS (7 sets, daily range): BP systolic 99–118; BP diastolic 63–79; PULSE 60–80; RESP 17–18; TEMP 36.4–37; O2SAT 97–99
[2021-01-11] MEDS: Normal Saline 1,000 ML 125 ML IV (01:17)
[2021-01-11] MEDS: ACETAMINOPHEN 1,000 MG/100 ML BTL 400 MG IVPB ×4 (01:18→17:34)
[2021-01-11 07:15] LABS: Abs Immature Grans 0.04 10^3/uL (0.0-0.06); Absolute Basophil Count 0.02 10^3/uL (0.0-0.2); Absolute Lymphocyte Count 0.16 10^3/uL (1.2-3.4); Absolute Monocyte Count 0.34 10^3/uL (0.1-0.8); Basophils % 0.1; HCT 38.6 % (40.0-50.0); Immature Grans % 0.2; MCH 29.3 pg (27.0-33.0); MCHC 33.7 % (32.0-36.0); MCV 86.9 fL (80-95); MPV 9.9 fL (8.0-11.0); Monocytes % 2.1; Neutrophils % 96.6; Nucleated RBC 0 %; Platelet Count 202 10^3/uL (130-400); RBC 4.44 10^6/uL (4.36-5.78); RDW 12.8 % (11.8-14.1); RDW-SD 40.9 fL; WBC 16.23 10^3/uL (4.4-10.8)
[2021-01-11 07:16] LABS: Absolute Neutrophil Count 15.68 10^3/uL (1.2-6.7)
[2021-01-11 07:32] LABS: C-Reactive Protein 10.49 mg/dL (0.0-0.3)
[2021-01-11] MEDS: Mylanta Suspension 30 ML CUP PO (07:46)
--- NOTE | 2021-01-11 11:09 | W.PM.PROGNOT ---
Documented by User: CODY Olmedo 01/11/21 11:13 Date of Service Date of service: 01/11/21 Time of Service: 11:09 Assessment and Plan Assessment and plan (1) Acute appendicitis: Status: Acute Assessment and plan: POD #1 s/p laparscopic appendectomy for gangrenous appendix. Continue IV fluids Will start clear liquids Continue with pain control Encouraged activity as tolerated. Afebrile overnight. Subjective Subjective Interval history since last seen: Patient reports that he is feeling well this morning. He states that his pain has been well controlled. He denies any fevers or chills. Exam Const General: cooperative, healthy appearing and comfortable Orientation: alert and oriented x3 Resp Effort & Inspection: normal respiratory effort, no audible wheezes and no cough GI Palpation: soft, no guarding and tender Objective Last Vital Signs Temp 36.5 C 01/11/21 07:39 Pulse 68 01/11/21 07:39 Resp 17 01/11/21 09:15 BP 109/69 01/11/21 07:39 Pulse Ox 99 01/11/21 09:15 Laboratory Results - last 24 hr 01/10/21 01/10/21 01/10/21 17:55 18:09 18:09 WBC 16.53 H RBC 4.83 Hgb 14.3 Hct 41.6 MCV 86.1 MCH 29.6 MCHC 34.4 RDW 12.3 Plt Count 216 MPV 9.5 Immature Gran % 0.3 Neutrophils % 96.0 Lymphocytes % 1.3 Monocytes % 2.1 Eosinophils % 0.1 Basophils % 0.2 Nucleated RBC % 0 Absolute Neutrophils 15.87 H Absolute Lymphocytes 0.21 L Absolute Monocytes 0.35 Absolute Eosinophils 0.02 Absolute Basophils 0.03 Sodium 139 Potassium 3.5 Chloride 103 Carbon Dioxide 26.2 Anion Gap 9.8 BUN 11 Creatinine 1.0 Estimated GFR/1.73 m2 >= 60.00 Glucose 103 Calcium 8.9 Magnesium 1.5 L Total Bilirubin 0.6 AST 13 L ALT 18 Alkaline Phosphatase 68 C-Reactive Protein Total Protein 7.0 Albumin 3.5 Lipase 69 Urine Color Yellow Urine Clarity Clear Urine pH 6.5 Ur Specific [place] 1.015 Urine Protein Negative Urine Ketones Negative Urine Blood Negative Urine Nitrite Negative Urine Bilirubin Negative Urine Urobilinogen 0.2 Ur Leukocyte Esterase Negative Urine Glucose Negative COVID-19 Source SARS-CoV-2 (PCR) 01/10/21 01/11/21 01/11/21 20:06 06:50 06:55 WBC 16.23 H RBC 4.44 Hgb 13.0 L Hct 38.6 L MCV 86.9 MCH 29.3 MCHC 33.7 RDW 12.8 Plt Count 202 MPV 9.9 Immature Gran % 0.2 Neutrophils % 96.6 Lymphocytes % 1.0 Monocytes % 2.1 Eosinophils % 0.0 Basophils % 0.1 Nucleated RBC % 0 Absolute Neutrophils 15.68 H Absolute Lymphocytes 0.16 L Absolute Monocytes 0.34 Absolute Eosinophils 0.00 Absolute Basophils 0.02 Sodium Potassium Chloride Carbon Dioxide Anion Gap BUN Creatinine Estimated GFR/1.73 m2 Glucose Calcium Magnesium Total Bilirubin AST ALT Alkaline Phosphatase C-Reactive Protein 10.49 H Total Protein Albumin Lipase Urine Color Urine Clarity Urine pH Ur Specific [place] Urine Protein Urine Ketones Urine Blood Urine Nitrite Urine Bilirubin Urine Urobilinogen Ur Leukocyte Esterase Urine Glucose COVID-19 Source Nasal/Nares SARS-CoV-2 (PCR) Negative Documented by User: Marylou Donohue DO 01/11/21 20:39 Assessment and Plan Assessment and plan (1) Acute appendicitis: Status: Acute Assessment and plan: pt seen this evening. tolerating clears and once to try regular food. He is passing gas. [place] better this am. sore and tired this pm has not had a BM. He has been up walking and doing IS want to keep on Abx until WBC trending down. DVT proph ADAT zosyn/ probiotics pain management (2) Congenital pancreatic cyst: Status: Acute (3) Liver cyst: Status: Acute
[2021-01-11] MEDS: Ketorolac 15 MG/ML VIAL IVP (17:34)
--- NOTE | 2021-01-11 18:44 | PDOC.CMIN ---
- If Service Date Differs Date of service: 01/11/21 Time of Service: 18:44 Care Management Initial Assess REASON FOR HOSPITALIZATION:: Acute appendicitis PAST MEDICAL HISTORY/PAST SURGICAL HISTORY:: Surgical History. History of cholecystectomy PREVIOUS FUNCTIONAL STATUS/SOCIAL/FAMILY SUPPORTS:: Maurice lives in [place] with his , Tamir, and their four children. They recently relocated to [place] from [place], but they are originally from [place]. 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 He reports enjoying living in the area. He is independent at baseline. CURRENT FUNCTIONAL STATUS:: Maurice was lying in bed when CM met with him. He reported that he is feeling good, considering that he had surgery late last night to remove his gangenous appendix. He was pleasant and engaged in conversation. He reported that per MD, he feels that he may need to remain overnight for IV abx and continued monitoring. He would prefer to return home but is agreeable to remain. CM will continue to follow. ADVANCE DIRECTIVES:: None on file. Has patient been provided with info about the portal/API?: Yes Did the patient sign up for the portal?: No CODE STATUS:: Full Code INSURANCE COVERAGE / FINANCIAL ISSUES:: [employer] CURRENT HOME/COMMUNITY SERVICES/EQUIPMENT:: No current services or equipment. PRIMARY CARE PHYSICIAN:: no local pcp. CM will offer referral from ED. POTENTIAL DISCHARGE NEEDS:: Follow up appointments. PATIENT/FAMILY EDUCATION NEEDS:: Review discharge instructions, discussion of self care needs including ask me three. ANTICIPATED BARRIERS TO DISCHARGE:: None identified. TRANSPORTATION:: Via private vehicle by his . PLAN:: Anticipate Maurice will return home when medically cleared. His will drive him home via private vehicle. He will follow up with his PCP and discharge plan of care. CM will continue to follow.
[2021-01-11] MEDS: Enoxaparin 40 MG/0.4 ML SYR SC (20:18)
[2021-01-11] MEDS: PIPERACILLIN/TAZO 3.375 GM in Normal Saline 50 ML IVPB (22:36)
[2021-01-12] MEDS: Ketorolac 15 MG/ML VIAL IVP ×2 (00:22→05:23)
[2021-01-12] MEDS: Normal Saline Flush 10 ML SYR IVP (00:23)
[2021-01-12] MEDS: ACETAMINOPHEN 1,000 MG/100 ML BTL 400 MG IVPB ×2 (00:24→05:23)
[2021-01-12 03:05] VITALS: BP 120/80; PULSE 70; RESP 18; TEMP 36.6; O2SAT 99
[2021-01-12] MEDS: PIPERACILLIN/TAZO 3.375 GM in Normal Saline 50 ML IVPB (05:22)
[2021-01-12 05:23] VITALS: TEMP 37
[2021-01-12 07:07] LABS: Abs Immature Grans 0.04 10^3/uL (0.0-0.06); Absolute Basophil Count 0.02 10^3/uL (0.0-0.2); Absolute Eosinophil Count 0.01 10^3/uL (0.0-0.7); Absolute Lymphocyte Count 0.18 10^3/uL (1.2-3.4); Absolute Monocyte Count 0.34 10^3/uL (0.1-0.8); Absolute Neutrophil Count 6.84 10^3/uL (1.2-6.7); Basophils % 0.3; Eosinophils % 0.1; HCT 38.6 % (40.0-50.0); Immature Grans % 0.5; Lymphocytes % 2.4; MCH 29.8 pg (27.0-33.0); MCHC 33.7 % (32.0-36.0); MCV 88.5 fL (80-95); Monocytes % 4.6; Neutrophils % 92.1; Nucleated RBC 0 %; Platelet Count 160 10^3/uL (130-400); RBC 4.36 10^6/uL (4.36-5.78); RDW 12.9 % (11.8-14.1); RDW-SD 42.2 fL; WBC 7.43 10^3/uL (4.4-10.8)
[2021-01-12 07:33] VITALS: BP 98/61; PULSE 62; RESP 17; TEMP 36.5; O2SAT 96
[2021-01-12 07:34] LABS: C-Reactive Protein 10.57 mg/dL (0.0-0.3)
[2021-01-12] MEDS: traMADol 50 MG TAB PO (09:24)
[2021-01-12] MEDS: Milk of Magnesia 30 ML CUP PO (09:24)
[2021-01-12 09:30] VITALS: RESP 16
--- NOTE | 2021-01-12 09:33 | W.PM.PROGNOT ---
Documented by User: CODY Olmedo 01/12/21 09:37 Date of Service Date of service: 01/12/21 Time of Service: 09:33 Assessment and Plan Assessment and plan (1) Acute appendicitis: Status: Acute Assessment and plan: POD #2 s/p laparoscopic appendectomy for gangrenous appendix. Continue IV fluids Tolerating regular diet Continue with pain control Encouraged activity as tolerated. Afebrile overnight. Subjective Subjective Interval history since last seen: Patient reports he is feeling even better today, the fog has lifted. He reports abdominal soreness, but otherwise feeling great. He reports tolerating a regular diet without any issues. (+) flatus and he had a BM yesterday. Exam Const General: cooperative, healthy appearing and comfortable Orientation: alert and oriented x3 Resp Effort & Inspection: normal respiratory effort, no cough and respiratory effort not decreased GI Inspection: normal to inspection and non-distended Objective Last Vital Signs Temp 36.5 C 01/12/21 07:33 Pulse 62 01/12/21 07:33 Resp 17 01/12/21 07:33 BP 98/61 L 01/12/21 07:33 Pulse Ox 96 01/12/21 07:33 Laboratory Results - last 24 hr 01/12/21 01/12/21 06:46 06:46 WBC 7.43 D RBC 4.36 Hgb 13.0 L Hct 38.6 L MCV 88.5 MCH 29.8 MCHC 33.7 RDW 12.9 Plt Count 160 MPV 10.0 Immature Gran % 0.5 Neutrophils % 92.1 Lymphocytes % 2.4 Monocytes % 4.6 Eosinophils % 0.1 Basophils % 0.3 Nucleated RBC % 0 Absolute Neutrophils 6.84 H Absolute Lymphocytes 0.18 L Absolute Monocytes 0.34 Absolute Eosinophils 0.01 Absolute Basophils 0.02 C-Reactive Protein 10.57 H Documented by User: Torri Carrizales DO 01/12/21 10:05
--- NOTE | 2021-01-12 10:23 | W.PM.DS.N ---
DS: Diagnosis Discharge Diagnosis (1) Acute appendicitis: Status: Acute Asessment and Plan: POD#2 s/p laparoscopic appendectomy -Completed IV antibiotic therapy -PO analgesia with Ibuprofen/Acetaminophen -PO diet as tolerated -Limit activity for the next week, <10 lbs limit on lifting -Return precautions discussed -F/U in office next week with Dr. Hernandez Discharge Plan Disposition Patient Disposition: HOME Condition: Stable Discharge Details Reason For Visit: Gangrenous Appendix Admit Date/Time: 01/10/21 22:50 Admit Provider: Marylou Donohue Attending Provider: Marylou Donohue Primary Care Provider: Unknown,Unknown Hospital Course Hospital Course: Patient was admitted to the hospital after being found to have acute uncomplicated appendicitis. He was subsequently taken to the operating room on 01/10/2021 for laparoscopic appendectomy where he was found to have acute gangrenous appendicitis. There was no evidence of gross perforation, but was continued on IV antibiotics prophylactically. On postoperative day #2 patient was deemed stable for discharge home as he was having bowel movements, tolerating PO diet and PO analgesics. Home Meds and New Rx's Prescriptions: New acetaminophen [Tylenol 8 Hour] 650 mg tablet extended release 650 mg PO Q8H Qty: 60 RF: 0 Continued No Known Home Meds RF: 0 Discharge Instructions Instructions: Laparoscopic Appendectomy (GEN) Additional Instructions: Please do not lift more than 10 pounds for next 2 weeks. Okay to take a shower and pat incisions dry. Try not to pick at skin glue as this will wear off on its own over time. Please follow-up with Dr. Hernandez in the office next week prior to returning to work. Activity:: no lifting >10lbs for 2wk Equipment/Supplies:: No Equipment Needed Diet:: Normal Diet Discharge Orders Discharge Orders: Discharge Order (Routine); Ordered 01/12/21 Ordered By: Torri Carrizales DS: Summary Time Spent with Patient providing and/or coordinating discharge services: Less than 30 minutes Specific discharge activities: Avoid lifting more than 10 lbs for 2 weeks, ok to shower and pat incisions dry. Follow up in clinic next week with Dr. Hernandez. Status at Discharge Functional status at discharge: independent ambulation Overall status at discharge: patient is back to baseline Mental Status: mental status grossly normal Speech and Movement: speech and movement normal Mood: congruent mood Affect: normal affect Quality: AMI Clinical Trial Participant: No Exam Const General: cooperative, healthy appearing, comfortable and no acute distress Orientation: alert, awake and oriented x3 Resp Effort & Inspection: normal respiratory effort GI Inspection: normal to inspection, non-distended and other (incisions clean dry and intact with skin glue in place) Palpation: soft, no guarding and tender (appropriate post operative discomfort) Skin Rashes: no rashes Psych Mental Status: mental status grossly normal Speech and Movement: speech and movement normal Mood: congruent mood Affect: normal affect DS: Data Vitals/I&O Vitals and I&O: Vital Signs Temperature 97.7 F 01/12/21 07:33 Temperature Source Temporal Artery Scan 01/12/21 07:33 Pulse 62 01/12/21 07:33 Pulse 94 H 01/10/21 20:46 Respiratory Rate 17 01/12/21 07:33 Respiratory Effort Non-Labored 01/12/21 06:15 Respiratory Depth Normal 01/12/21 06:15 Blood Pressure 98/61 L 01/12/21 07:33 Blood Pressure Mean 68 01/10/21 20:46 Pulse Oximetry 96 01/12/21 07:33 Respiratory End-tidal CO2 36 01/10/21 23:16 Oxygen Delivery Method Room Air 01/12/21 07:33 Oxygen Flow Rate 0 01/12/21 07:33 Pain Level 1 01/12/21 09:24 Intake & Output 01/11/21 01/11/21 01/12/21 11:59 23:59 11:59 Intake Total 200 / 1400 1200 / 1400 150 / 150 Output Total 1500 / 2100 600 / 2100 Balance -1300 / -700 600 / -700 150 / 150 Weight 202 lb 9.677 oz Intake: IV 200 / 400 200 / 400 150 / 150 Oral 1000 / 1000 Output: Urine 1500 / 2100 600 / 2100 Other: Urine Color Light Ambreen Yellow Urine Appearance Clear Clear Clear Urine Odor None Voiding Methods Urinal Toilet Data Completed and Pending Labs on day of discharge: Labs from last 24 hours 01/12/21 01/12/21 06:46 06:46 WBC 7.43 D RBC 4.36 Hgb 13.0 L Hct 38.6 L MCV 88.5 MCH 29.8 MCHC 33.7 RDW 12.9 Plt Count 160 MPV 10.0 Immature Gran % 0.5 Neutrophils % 92.1 Lymphocytes % 2.4 Monocytes % 4.6 Eosinophils % 0.1 Basophils % 0.3 Nucleated RBC % 0 Absolute Neutrophils 6.84 H Absolute Lymphocytes 0.18 L Absolute Monocytes 0.34 Absolute Eosinophils 0.01 Absolute Basophils 0.02 C-Reactive Protein 10.57 [facility] Surgical History History of cholecystectomy Social History Smoking/Tobacco Use Status: Never Smoking risk assessment performed?: Yes Alcohol Intake: never Drug use: Never Substance use type: does not use Do you feel safe at home: Yes Do you feel safe in your relationship?: Yes
--- NOTE | 2021-01-12 20:18 | PDOC.CMDIS ---
- If Service Date Differs Date of service: 01/12/21 Time of Service: 20:18 LACE Index Scoring Tool - Questions: Length of Stay (in days): 2 Acuity (Admit via E.D.?): Yes E.D. Visits: 1 - Answers: Total Score: 6 Risk of Readmission: Low Risk Care Management Discharge Reason for Hospitalization: Acute appendicitis Discharge Plan: Maurice will return home with no additional services at this time. His will drive him home via private vehicle. He will follow up with his PCP and discharge plan of care. He is happy to be returning home. Patient/Family Education Needs: Review discharge instructions, discussion of self care needs including ask me three.
== END 2021-01-12 12:03 | disposition home or self-care (01) | DRG 342 ==
LOC: ER 21:10 → SUR 21:18 → MS 23:42
PROVIDERS: Admitting Provider Surgery; Emergency Provider Physician Assistant; Visit Provider Surgery
PROC: 0DTJ4ZZ Resection of Appendix, Percutaneous Endoscopic Approach (ICD-10-PCS; CPT 44970; principal; 2021-01-10 20:45)
DX: K35.891 Other acute appendicitis without perforation, with gangrene (principal); K86.2 Cyst of pancreas; K76.89 Other specified diseases of liver; Z20.822 Contact with and (suspected) exposure to COVID-19
CPT/HCPCS: 44970; 36415; 80053; 83690; 87635; 96361; 96365; 96367; 99285; J1650; 74177; 81003; 83735; 85025; 86140; 88304; J0131; J1100; J1885; J2001; J2250; J2405; J2543; J2704; J3490

== ENCOUNTER 2021-02-24 03:36 | Outpatient (CLI) | payer OTHER, SELFPAY ==
--- NOTE | 2021-02-24 07:00 | DI.MRI_ITS ---
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 TECHNIQUE: Multiplanar multisequence MRI was performed. COMPARISON: CT CT ABDOMEN PELVIS W from 01/10/[address] ABDOMEN PELVIS W from 01/10/2021 FINDINGS: MR examination of the abdomen was performed according to the usual protocol including multi phasic po st contrast T1 weighted imaging of the liver and pancreas. Recent CT examination showed tiny low-attenuation multiple hepatic lesions and showed questionable ti ny pancreatic lesions as well, question cystic. On today's examination, there are multiple tiny fluid signal foci in the liver, the largest in the ri ght hepatic lobe medially measuring about 9 millimeters in diameter. None of these show enhancement post contrast imaging and they all have an appearance consistent with cysts. No additional suspiciou s hepatic lesion identified. The pancreas shows normal signal throughout with no evidence of a mass or cyst. The biliary ductal system is normal in appearance in a post cholecystectomy patient. No pancreatic d uctal dilatation. No retroperitoneal or mesenteric adenopathy identified. Spleen, adrenals, and kidneys are normal in appearance. Abdominal aorta is of normal diameter as visualized. IMPRESSION: Multiple small hepatic cysts noted. No pancreatic cyst or mass seen. No additional follow-up studie s recommended. DATA REPOSITORY:
[2021-02-24] MEDS: Gadoterate meglumine 20 ML VIAL 18 ML IVP (09:28)
== END 2021-02-24 03:56 ==
PROVIDERS: Visit Provider Surgery
DX: K76.89 Other specified diseases of liver (principal); Q45.2 Congenital pancreatic cyst; Q44.6 Cystic disease of liver
CPT/HCPCS: 74183

== ENCOUNTER 2021-07-21 01:52 | Outpatient (CLI) | payer OTHER, SELFPAY ==
[2021-07-24 09:58] LABS: HBs Antibody, Quant 22.2 mIU/mL (See Note); Hepatitis B Surface Ab Positive (See Note)
[2021-07-24 11:27] LABS: Measles IgG Antibody Positive (See Note); Mumps Antibody IgG Positive (See Note); Rubella IgG Ab (UVM) Positive (See Note); Varicella IgG Antibody Positive (See Note)
[2021-07-24 13:47] LABS: TB Interpretation Negative (Negative); TB1 Ag minus Nil 0.06 IU/ml; TB2 Ag minus Nil 0.06 IU/mL
== END 2021-07-21 01:53 | disposition home or self-care (01) ==
LOC: LBO 01:52
PROVIDERS: Visit Provider Nurse Practitioner Family
DX: Z02.1 Encounter for pre-employment examination (principal)
CPT/HCPCS: 36415; 86706; 86787; 86480; 86735; 86762; 86765

== ENCOUNTER 2022-05-07 19:04 | Outpatient (REF) | payer OTHER, SELFPAY ==
[2022-05-07 15:53] LABS: HCT 48.1 % (40.0-50.0); HGB 15.8 g/dL (13.5-17.5); MCH 29.2 pg (27.0-33.0); MCHC 32.8 % (32.0-36.0); MCV 89 fL (80-95); MPV 10.7 fL (8.0-11.0); Platelet Count 278 10^3/uL (130-400); RBC 5.41 10^6/uL (4.36-5.78); RDW 13.2 % (11.8-14.1); RDW-SD 43.3 fL; WBC 7.76 10^3/uL (4.4-10.8)
[2022-05-07 16:18] LABS: ALT 24 U/L (16-63); AST 32 U/L (15-37); Alkaline Phosphatase 63 U/L (46-116); Anion Gap 7.1 mmol/L (3-11); BUN 15 mg/dL (7-18); Bilirubin, Total 0.8 mg/dL (0.2-1.0); CO2 28.9 mmol/L (21.0-32.0); CREATININE 1.1 mg/dL (0.70-1.30); Calcium 9.5 mg/dL (8.5-10.1); Calculated LDL 111 mg/dL (<100); Chloride 103 mmol/L (98-107); Cholesterol 191 mg/dL (<200); Estimated GFR 83.84 (mL/min/1.73m2); Glucose 87 mg/dL (74-106); HDL Cholesterol 44 mg/dL (40-60); Potassium 4.7 mmol/L (3.5-5.1); Sodium 139 mmol/L (136-145); Total Protein 7.3 g/dL (6.4-8.2); Triglyceride 183 mg/dL (<150)
== END 2022-05-07 19:05 | disposition home or self-care (01) ==
LOC: NCHCN 19:04
PROVIDERS: PCP Family Medicine; Visit Provider Family Medicine
DX: Z00.00 Encounter for general adult medical examination without abnormal findings (principal); F41.9 Anxiety disorder, unspecified; K76.0 Fatty (change of) liver, not elsewhere classified; E29.1 Testicular hypofunction
CPT/HCPCS: 80053; 80061; 85027

== ENCOUNTER 2022-06-29 09:39 | Day surgery (SDC) | payer OTHER, SELFPAY ==
--- NOTE | 2022-06-28 20:31 | W.PREOPHP ---
Assessment and Plan Assessment and plan (1) Screening for colon cancer: Status: Acute Assessment and plan: Proceed with screening colonoscopy today History of Present Illness History of Present Illness Chief Complaint: Screening colonoscopy Narrative: He is a very healthy 46-year-old.? He denies any changes in bowel habits, melena, hematochezia, abdominal pain, weight loss or family history of colon cancer.? He does tend to have bouts of diarrhea which he feels are stress and anxiety related.? He has never been diagnosed with IBS but he feels that that is probably what he has.? He also/urgency when he has the bouts of diarrhea. PFSH All Active Problems Acute appendicitis (Acute) Liver cyst (Acute) Congenital pancreatic cyst (Acute) Low testosterone (Acute) Screening for colon cancer (Acute) Medical History WILKINSON (nonalcoholic steatohepatitis) pt denies Surgical History History of cholecystectomy History of repair of anterior cruciate ligament of left knee S/P laparoscopic appendectomy (~01/10/21) Social History Smoking/Tobacco Use Status: Never Smoking risk assessment performed?: Yes Alcohol Intake: never Drug use: Never Substance use type: does not use Current gender identity: male Do you feel safe at home: Yes Do you feel safe in your relationship?: Yes Meds Allergies and Home Medications Allergies Allergy/AdvReac Type Severity Reaction Status Date / Time No Known Allergies Allergy Verified 06/29/22 09:50 Home Medications Medication Instructions Recorded Confirmed Type ascorbate calcium (vitamin C) 500 500 mg PO DAILY 05/15/22 06/29/22 History mg tablet cholecalciferol (vitamin D3) 50 50 mcg PO DAILY 05/15/22 06/29/22 History mcg (2,000 unit) capsule Exam Const General: cooperative, healthy appearing and comfortable Orientation: awake and oriented x3 Eyes General: appearance normal, both eyes and all related structures Conjunctivae: conjunctivae normal Sclera: sclerae normal Resp Effort & Inspection: normal respiratory effort and able to speak in complete sentences Auscultation: clear to auscultation bilaterally Cardio Jugular venous pressure: no JVD Rate: regular rate Rhythm: regular rhythm Heart Sounds: S1 normal and S2 normal GI Inspection: non-distended Palpation: soft, no guarding, no hernias and nontender Auscultation: normal bowel sounds Skin General skin exam: normal turgor Neuro General: patient alert, patient awake and patient oriented x3 Cognition: normal cognition Extrem Right lower extremity: no edema Left lower extremity: no edema
--- NOTE | 2022-06-28 20:33 | W.PM.DSUDISC ---
Date of service: 06/29/22 Time of Service: 11:45 Discharge Plan Disposition Patient Disposition: Home Condition: Good Discharge Details Reason For Visit: Screening colonoscopy Attending Provider: Benjamín Burton Primary Care Provider: Timur Grissom Home Meds and New Rx's Prescriptions: Continued cholecalciferol (vitamin D3) 50 mcg (2,000 unit) capsule 50 mcg PO DAILY ascorbate calcium (vitamin C) 500 mg tablet 500 mg PO DAILY Discontinued bisacodyl [Dulcolax (bisacodyl)] 5 mg tablet,delayed release (DR/EC) 5 mg PO ONCE Qty: 4 0RF Rx Instructions: Take according to provider's instructions for colonoscopy prep. polyethylene glycol 3350 17 gram/dose powder 17 g PO ONCE Qty: 238 0RF Rx Instructions: To be taken as directed by prescriber's office for colonoscopy prep. Discharge Instructions Additional Instructions: 1. If tolerated, consume a soft, low fiber diet for 1-2 days. [address] not drive, drink alcohol, operate machinery, make critical decisions, or do activities that require coordination or balance for 24 hours. 3. Because air was put into your colon during the procedure, expelling air from your rectum (passing gas or farting) is normal. 4. You may not have a bowel movement for 1-3 days because of the colonoscopy prep. This is normal. 5. Go directly to the emergency room if you notice any of the following: Develop chills (warm to touch), or if you have a thermometer and your temperature is above 101 Difficulty breathing or difficultly swallowing Persistent vomiting Severe abdominal pain, other than gas cramps Severe chest pain Black, tarry stools Any bleeding ? exceeding one tablespoon 6. Call your physician if the site where your intravenous was started becomes red, swollen, painful, and warm to touch. 7. Your physician has reviewed your pre-procedure medications. Please continue to take those medications as previously ordered. You will be given specific information/education regarding any changes to your medications before leaving. Stand Alone Forms: Yessenia Escobedo (FRANCOU) Activity:: Activity as Tolerated Diet:: As Tolerated Discharge Orders Discharge Orders: Discharge Order (Routine); Ordered 06/28/22 Ordered By: Benjamín Burton DS: Diagnosis Discharge Diagnosis (1) Screening for colon cancer: Status: Acute Asessment and Plan: Your colonoscopy was normal. There was no evidence of any polyps, or other abnormalities. I recommend that you undergo another colonoscopy at 10 years as part of routine health maintenance to screen for colon polyps and cancers
--- NOTE | 2022-06-28 20:35 | W.COLOREPORT ---
Date of service: 06/29/22 Time of Service: 11:46 Colonoscopy Report Date of procedure: 06/29/22 Pre-op diagnosis general: screening colonoscopy Post-op diagnosis procedure note: same Procedure: Screening colonoscopy Surgeon: Benjamín Burton Anesthesia Type: General:No Airway Estimated blood loss (mL): 0 Pathology: none sent Complications: None Disposition: same day Indications: Fernandez is 46 years old and undergoing his first screening colonoscopy as part of routine health maintenance Prep: Miralax/Dulcolax Procedure Start Time: 11:09 Procedure End Time: 11:21 Retraction Time: 9 Findings: Normal colonoscopy Procedure Description: After the induction of monitored anesthetic care, and with the patient in left lateral decubitus position, I began by performing an external anorectal exam.? Perineum and skin were normal, as was the anal verge.? There was no evidence of external hemorrhoids.? Next, I performed a digital rectal exam.? I did not appreciate any abnormal findings.? Next, I advanced a colonoscope into the rectal vault.? I performed retroflexion.? This was normal.? Using insufflation, I then advanced the colonoscope beyond the rectal folds and into the sigmoid colon before advancing towards the cecum.? The quality of the prep was excellent.? The scope was noted to be in the cecum by identification of the ileocecal valve and the terminal ileum. I then began withdrawing the colonoscope using repeated irrigation as necessary for full evaluation of the colonic mucosa. ?Once the scope was withdrawn to the level of the rectum, great care was taken to examine portions of the rectal folds.? I did not see any evidence of polyps or other problems within the large intestine. Finally, the scope was withdrawn and the patient was brought to the same-day surgery recovery unit as the anesthetic wore off. ?The findings and instructions were shared with the patient prior to discharge.
[2022-06-29 09:51] VITALS: BP 134/89; PULSE 86; RESP 16; TEMP 36.7; O2SAT 98
--- NOTE | 2022-06-29 10:12 | W.ANESPRE ---
General Info Date of Service Date Performed: 06/29/22 Height: 5 ft 10 in Weight: 97.3 kg Body Mass Index (BMI): 30.7 Surgical Procedure: Operation Date: 06/29/22 10:50 Proposed Procedure Side Surgeon p Colonoscopy Benjamín Burton MD Meds Allergies and Home Medications Allergies Allergy/AdvReac Type Severity Reaction Status Date / Time No Known Allergies Allergy Verified 06/29/22 09:50 Home Medication Medication Instructions Recorded ascorbate calcium (vitamin C) 500 500 mg PO DAILY 05/15/22 mg tablet cholecalciferol (vitamin D3) 50 50 mcg PO DAILY 05/15/22 mcg (2,000 unit) capsule Current Visit Medications: Current Medications Generic Name Dose Route Start Last Admin Trade Name Freq PRN Reason Stop Dose Admin Hyoscyamine Sulfate 0.125 mg 06/28/22 20:35 Hyoscyamine 0.125 Mg Sl/Oral/Chew SL DIRECTED PRN Ringer's Solution 1,000 mls @ 80 mls/hr 05/31/22 06:00 IV 06/29/22 23:59 INFUSION [facility] IV Miscellaneous Supplies 1 each 05/31/22 06:00 Iv Access IV 06/29/22 23:59 DIRECTED ABBIE Ondansetron HCl 4 mg 06/28/22 20:35 Ondansetron 4 Mg/2 Ml Vial IVP Q4H PRN PRN Nausea / Vomiting Sodium Chloride 0 ml 05/31/22 06:00 Normal Saline Flush 10 Ml Syr IV 06/29/22 23:59 PRN PRN Sodium Chloride 0 ml 05/31/22 06:00 Normal Saline 10 Ml Vial IJ 06/29/22 23:59 DIRECTED PRN Sterile Water 0 ml 05/31/22 06:00 Water,Injection,Sterile 10 Ml Vial IJ 06/29/22 23:59 DIRECTED PRN PFSH Active Problems Active Problems: Problem Status Onset Code Acute appendicitis K35.80 Liver cyst K76.89 Congenital pancreatic cyst Q45.2 Low testosterone R79.89 Screening for colon cancer Z12.11 Medical History Medical History WILKINSON (nonalcoholic steatohepatitis) pt denies Surgical History Surgical History History of cholecystectomy History of repair of anterior cruciate ligament of left knee S/P laparoscopic appendectomy (~01/10/21) Tobacco Smoking/Tobacco Use Status: Never Alcohol Alcohol Intake: never Substance Use Substance use: Never Substance use type: does not use Vital Signs and Lab Results Vital Signs Most Recent Vital Signs in EMR: Most Recent Vital Signs Temp Pulse Resp BP Pulse Ox 36.7 C 86 16 134/89 98 06/29/22 09:51 06/29/22 09:51 06/29/22 09:51 06/29/22 09:51 06/29/22 09:51 Lab Results Blood Type / Crossmatch: No Data to Display Complete Blood Count: No Data to Display Complete Metabolic Panel: No Data to Display Liver Function Panel: No Data to Display Coagulation Panel: No Data to Display Cardiac Panel: No Data to Display Arterial Blood Gas: No Data to Display Venous Blood Gas: No Data to Display Pancreas Panel: No Data to Display Thyroid Panel: No Data to Display Infectious Disease: No Data to Display Blood Cultures: No Data to Display Toxicology Panel: No Data to Display Anesthesia Assessment and Plan Anesthesia History Personal History: No History of Anesthesia Complications Family History: No Family History of Anesthesia Complications Exercise Tolerance Exercise Tolerance: Metabolic Equivalents>4 Pertinent Negatives Pertinent Negatives: No Symptoms of GERD Cardiac & Pulmonary Exam Cardiac Exam: Normal S1/S2 Heart Sounds Pulmonary Exam: Clear Bilateral Breath Sounds Implantable Cardiac Device Does patient have a Pacemaker or an ICD?: No Airway Exam Known Difficult Airway: No Mallampati Class: 3 Mouth Opening: Narrow (< 3cm) Thyromental Distance: Less than 3 cm Neck Range of Motion: Full ROM Neck Circumference: Normal Teeth Condition: Loose or Chipped (chipped front after intubation for delbert. ) ASA Classification ASA Score: ASA 2 Emergency Case?: No NPO Status NPO Status: NPO Clears >2 hours, Solids >8 hours Anesthesia Plan Resuscitation Status: Full Code Anesthesia Technique: General Anesthesia Airway Planned: Natural Airway Monitors Used: Standard Monitors
[2022-06-29] MEDS: Lactated Ringers 1,000 ML 80 ML IV (10:21)
[2022-06-29 10:46] VITALS: BMI 30.7
[2022-06-29 11:26] VITALS: BP 108/73; PULSE 73; RESP 16; TEMP 36.3; O2SAT 96
[2022-06-29 12:03] VITALS: BP 125/88; PULSE 82; RESP 16; TEMP 36.8; O2SAT 98
--- NOTE | 2022-06-29 13:03 | W.ANESPOSTOP ---
Postoperative Evaluation Date, Time and Location Date Performed: 06/29/22 Time Performed: 12:00 Patient Location: Day Surgery Unit Vital Signs Most Recent Imported Vital Signs: Most Recent Vital Signs Temp Pulse Resp BP Pulse Ox 36.8 C 82 16 125/88 98 06/29/22 12:03 06/29/22 12:03 06/29/22 12:03 06/29/22 12:03 06/29/22 12:03 Pain Score Most Recent Pain Score: Most Recent Pain Score Pain Level 0 06/29/22 12:03 Assessment Mental Status: Awake (Alert & Oriented to Patient Baseline) Airway and Respiratory Function: Patent airway with normal (patient baseline) respiratory exam Cardiovascular Function: Hemodynamically Stable Hydration Status: Adequately Hydrated Nausea & Vomiting: No Nausea or Vomiting Pain: Pt. Denies Any Pain Peripheral Nerve Block: Patient did not receive a nerve block
== END 2022-06-29 12:25 | disposition home or self-care (01) ==
PROVIDERS: PCP Family Medicine; Visit Provider Surgery
PROC: 0DJD8ZZ Inspection of Lower Intestinal Tract, Via Natural or Artificial Opening Endoscopic (ICD-10-PCS; CPT 45378; principal; 2022-06-29 10:45)
DX: Z12.11 Encounter for screening for malignant neoplasm of colon (principal)
CPT/HCPCS: 45378

== ENCOUNTER → 2023-03-08 12:30 | Outpatient (CLI) | payer OTHER, SELFPAY ==
--- NOTE | 2023-03-08 | DI.RAD_ITS ---
Exam(s) XR LUMBAR SPINE COMPLETE EXAM: XR LUMBAR SPINE COMPLETE CLINICAL HISTORY: LOW BACK PAIN M54.50 X 2 WEEKS, HX SPINE STENOSIS. TECHNIQUE: 2D digital imaging was performed of the lumbar spine. Five images were obtained. AP, la teral, right oblique, left oblique and L5-S1 spot views were obtained. COMPARISON: No exams were available for comparison FINDINGS: BONES: No fracture or destructive lesion. Small endplate osteophytes are seen at L3-4 through L5-S1. No facet hypertrophy identified. DISKS: Intervertebral disc spaces are maintained. ALIGNMENT: Lumbar spinal alignment is within normal limits. No spondylolysis or spondylolisthesis. SOFT TISSUE: Surgical clips are seen in the right lower quadrant and pelvis. IMPRESSION: Mild degenerative changes in the lumbar spine. DATA REPOSITORY: RADIATION DOSE DELIVERED:
== END ==
PROVIDERS: PCP Nurse Practitioner Family; Visit Provider Physician Assistant Medical
DX: M51.36 Other intervertebral disc degeneration, lumbar region (principal)
CPT/HCPCS: 72110

== ENCOUNTER 2024-04-13 09:45 | Outpatient (CLI) | payer OTHER, SELFPAY ==
[2024-04-13 07:47] LABS: HCT 45.6 % (40.0-50.0); HGB 15.4 g/dL (13.5-17.5); MCH 29.7 pg (27.0-33.0); MCHC 33.8 % (32.0-36.0); MCV 88 fL (80-95); Platelet Count 242 10^3/uL (130-400); RBC 5.18 10^6/uL (4.36-5.78); RDW 13.2 % (11.8-14.1); RDW-SD 43.4 fL; WBC 6.68 10^3/uL (4.4-10.8)
[2024-04-13 17:36] LABS: Estradiol 75 pg/mL (<40)
[2024-04-13 18:27] LABS: Sex Hormone Binding Globulin 23.2 nmol/L (11.5-54.5)
[2024-04-24 10:24] LABS: Misc Referral (MAYO) See Comments
== END 2024-04-13 09:46 | disposition home or self-care (01) ==
DX: E29.1 Testicular hypofunction (principal)
CPT/HCPCS: 36415; 84402; 84403; 84410; 85027; 82670; 84270

== ENCOUNTER 2024-05-26 18:56 | Outpatient (REF) | payer OTHER, SELFPAY ==
[2024-05-26 14:40] LABS: ALT 40 U/L (16-63); AST 28 U/L (15-37); Albumin 3.8 g/dL (3.4-5.0); Alkaline Phosphatase 67 U/L (46-116); Anion Gap 4.5 mmol/L (3-11); BUN 15 mg/dL (7-18); Bilirubin, Total 0.57 mg/dL (0.2-1.0); CO2 29.5 mmol/L (21.0-32.0); CREATININE 1.3 mg/dL (0.70-1.30); Calcium 9.3 mg/dL (8.5-10.1); Calculated LDL 105 mg/dL (<100); Chloride 104 mmol/L (98-107); Cholesterol 183 mg/dL (<200); Estimated GFR 67.76 (mL/min/1.73m2); Glucose 97 mg/dL (74-106); HDL Cholesterol 50 mg/dL (40-60); Magnesium 2.1 mg/dL (1.8-2.4); Potassium 4.8 mmol/L (3.5-5.1); Sodium 138 mmol/L (136-145); Total Protein 6.8 g/dL (6.4-8.2); Triglyceride 142 mg/dL (<150)
== END 2024-05-26 18:57 | disposition home or self-care (01) ==
LOC: NCHCN 18:56
PROVIDERS: Visit Provider Family Medicine
DX: K76.0 Fatty (change of) liver, not elsewhere classified (principal); Z00.00 Encounter for general adult medical examination without abnormal findings; E83.42 Hypomagnesemia
CPT/HCPCS: 80053; 80061; 83735

== ENCOUNTER 2024-08-14 00:46 | Outpatient (CLI) | payer OTHER, SELFPAY ==
[2024-08-14 07:30] LABS: HCT 47.3 % (40.0-50.0); HGB 15.8 g/dL (13.5-17.5); MCH 29.4 pg (27.0-33.0); MCHC 33.4 % (32.0-36.0); MCV 88 fL (80-95); MPV 9.5 fL (8.0-11.0); Platelet Count 212 10^3/uL (130-400); RBC 5.38 10^6/uL (4.36-5.78); RDW 13.8 % (11.8-14.1); RDW-SD 44.5 fL; WBC 8.41 10^3/uL (4.4-10.8)
[2024-08-14 18:09] LABS: Estradiol 80 pg/mL (<40)
[2024-08-14 18:15] LABS: Sex Hormone Binding Globulin 20.9 nmol/L (11.5-54.5)
[2024-08-23 11:10] LABS: Testost. %Free+Weakly Bound 49.6 % (9.0-46.0); Testosterone F+W Bound 810.2 ng/dL (40.0-250.0); Testosterone, Total 1633.4 ng/dL
== END 2024-08-14 00:47 | disposition home or self-care (01) ==
PROVIDERS: PCP Family Medicine
DX: E29.1 Testicular hypofunction (principal)
CPT/HCPCS: 36415; 84403; 84410; 85027; 82670; 84270

== ENCOUNTER 2024-10-16 00:15 | Outpatient (CLI) | payer OTHER, SELFPAY ==
--- NOTE | 2024-10-16 | DI.MRI_ITS ---
Exam(s) MR CERVICAL SPINE WO EXAM: MR CERVICAL SPINE WO CLINICAL HISTORY: M48.02 Spinal stenosis, cervical region TECHNIQUE: Multiplanar multisequence MRI of the cervical spine was performed without intravenous con trast. COMPARISON: There are no plain films of the cervical spine available at the time of this MRI interpr etation. FINDINGS: CERVICOMEDULLARY JUNCTION: Intact with no evidence of cerebellar tonsillar ectopia. No obvious abnor mality of the odontoid process. No evidence of Chiari 1 malformation. CERVICAL SPINAL CORD: There is no abnormal signal in the cervical spinal cord and no evidence of foca l cord atrophy nor focal cord swelling. OSSEOUS:There are no cervical fractures evident. No significant osseous lesions in the cervical vert ebrae. Normal cervical curvature is maintained. INDIVIDUAL LEVELS: C2-3: No disc herniation nor central canal stenosis. No foraminal stenosis. No facet arthropathy. C3-4: There is a central posterior small disc protrusion which is subligamentous, indenting-facing th e anterior thecal sac and contacting the cervical spinal cord. There is no abnormal signal in the co rd at this level. Central canal dimensions are within normal limits. No disc extension into the exi ting neural foramina which are patent bilaterally without evidence of foraminal stenosis on either si de at this level.Facet joints appear unremarkable bilaterally at this level. C4-5: Relatively preserved disc height. There is also a central subligamentous disc protrusion at th is level which effaces the anterior thecal sac and contacts the anterior aspect of the cervical cord. No abnormal signal in the cord. The AP measurement of the canal at this level is 10 mm.Facet joint s at this level appear unremarkable. There is mild foraminal stenosis on the left side. No foramina l stenosis on the right side. C5-6: Normal disc height and signal. Mild annular bulging without a prominent disc herniation. Cent ral canal dimensions are lower normal. Facet joints at this level exhibit mild degenerative changes. No foraminal stenosis on either side at this level. C6-7: Relatively preserved disc height. No disc herniation at this level but there are bilateral Pamela chka joint-disc complexes, more prominent on the left side and there is significant left-sided forami nal stenosis at this level and mild right-sided foraminal stenosis. There are mild degenerative montalvo ges in the facet joints bilaterally at this level. C7-T1: No disc herniation nor central canal stenosis. No facet arthropathy.No foraminal stenosis. IMPRESSION: 1. There are central posterior subligamentous disc protrusions at C3-4 and C4-5 levels described abov e. No prominent central canal stenosis. Mild foraminal stenosis on the left side at C4-5 level. 2. At C6-7 level there is no disc herniation posteriorly but there are bilateral Luschka joint-disc c omplexes, more prominent on the left side where there is significant left-sided foraminal stenosis. Mild right-sided foraminal stenosis is noted at this level. DATA REPOSITORY:
== END 2024-10-16 00:35 ==
LOC: DI 00:15
PROVIDERS: PCP Family Medicine; Visit Provider Family Medicine
DX: M48.02 Spinal stenosis, cervical region (principal)
CPT/HCPCS: 72141